=== PATIENT | male | born 2000 | race Caucasian/White ===

== ENCOUNTER 2019-03-19 06:05 | Day surgery (SDC) | payer BC ==
[2019-03-19] VITALS (13 sets, daily range): BP systolic 115–147; BP diastolic 57–79
[~2019-03-19] VITALS: Ht 177.8 cm; Wt 70.3 kg
[2019-03-19] MEDS ORDERED: NKM (06:32)
[2019-03-19] MEDS ORDERED: ceFAZolin sod 1 GM in NS 55 ML IVPB ONE (07:00)
[2019-03-19] MEDS ORDERED: Cocaine HCl 4% 4ml vial TOPIC ONE (07:05)
[2019-03-19] MEDS ORDERED: Kenalog-40 1ml Vial ONE (07:05)
[2019-03-19] MEDS ORDERED: Bacitracin Oint 15gm Tube TOPIC ONE (07:05)
[2019-03-19] MEDS ORDERED: Oxymetazoline 0.05% Na Spray 30ml NASAL ONE (07:06)
--- NOTE | 2019-03-19 07:08 | Anethesia Preoperative Eval ---
Anesthesia Pre-op PMH/ROS General Date of Evaluation: Mar 19, 2019 Anesthesiologist: Felipe ASA Score: ASA 1 Mallampati Score Class I : Soft palate, uvula, fauces, pillars visible Class II: Soft palate, uvula, fauces visible Class III: Soft palate, base of uvula visible Class IV: Only hard plate visible Mallampati Classification: Class II Surgeon: Lang Diagnosis: Deviated septum Surgical Procedure: septoplasty, smr turbs and possible nasal reconstruction Anesthesia History: none Family History: no anesthesia problems Allergies: Coded Allergies: No Known Allergies (Unverified , 03/14/19) Medications: see eMAR Patient NPO?: Yes NPO Date: Mar 18, 2019 NPO Time: 22:00 Past Medical History Cardiovascular: Denies: HTN, CAD, MA, valve dz, arrhythmia, other Pulmonary: Denies: asthma, COPD, GEO, other Gastrointestinal/Genitourinary: Denies: GERD, CRI, ESRD, other Neurologic/Psychiatric: Denies: dementia, CVA, depression/anxiety, TIA, other Endocrine: Denies: DM, hypothyroidism, steroids, other HEENT: Denies: cataract (L), cataract (R), glaucoma, CACHIL DEHE (L), CACHIL DEHE (R), other Hematology/Immune: Denies: anemia, DVT, bleeding disorder, other Musculoskeletal/Integumentary: Denies: OA, RA, DJD, DDD, edema, other PSxH Narrative: Denies Anesthesia Pre-op Phys. Exam Physician Exam Last Vital Signs Date Time Temp Pulse Resp B/P (MAP) Pulse Ox O2 Delivery O2 Flow Rate FiO2 03/19/19 06:47 Room Air 03/19/19 06:42 97.6 74 18 115/57 97 Constitutional: NAD Cardiovascular: RRR Respiratory: CTA Airway Exam Mallampati Score: Class II MO: full ROM: full Teeth: intact Anesthesia Pre-op A/P Labs see chart Risk Assessment & Plan Assessment: ASA II Plan: GA Status Change Before Surgery: No Pre-Antibiotics Drug: Ancef 1g Given Within 1 Hr of Incision: Yes Terri De Los Santos MD Mar 19, 2019 07:08
[2019-03-19] MEDS ORDERED: Zemuron 50mg/5ml Inj IV ONE ×2 (07:23→10:36)
[2019-03-19] MEDS ORDERED: fentaNYL 100 mcg/2 mL IV ONE ×2 (07:25→13:54)
[2019-03-19] MEDS ORDERED: Midazolam 2mg/2ml Inj ONE (07:25)
[2019-03-19] MEDS ORDERED: Propofol 200mg/20ml IV ONE ×2 (07:25→13:44)
[2019-03-19] MEDS ORDERED: Lidocaine 1% MPF 10mg/ml 5ml ONE (07:25)
--- NOTE | 2019-03-19 07:25 | Pre-Procedure Note/Attestation ---
Pre-Procedure Note/Attestation Complete Prior to Procedure Planned Procedure: not applicable Procedure Narrative: nasal obstruction unresponsive to medication Indications for Procedure Pre-Operative Diagnosis: septal deviation, bilateral hypertrophied inferior turbinates Attestation I attest that I discussed the nature of the procedure; its benefits; risks and complications; and alternatives (and the risks and benefits of such alternatives ), prior to the procedure, with the patient (or the patient's legal sales representative publications). I attest that, if there was a reasonable possibility of needing a blood transfusion, the patient (or the patient's legal sales representative publications) was given the [facility] standardized written summary, pursuant to the [place] Blood Safety Act ([place] Health and Safety Code # 1645, as amended). I attest that I re-evaluated the patient just prior to the surgery and that there has been no change in the patient's H&P, except as documented below: Elier Croft MD Mar 19, 2019 07:24
[2019-03-19] MEDS ORDERED: Lidocaine 1% Plain 30 ml INJ ONE (07:27)
[2019-03-19] MEDS ORDERED: Ketorolac 30mg Inj ONE (07:29)
[2019-03-19] MEDS ORDERED: Metoclopramide 10mg/2ml Inj ONE (07:29)
[2019-03-19] MEDS ORDERED: Dexamethasone 4mg/ml vial ONE (07:29)
[2019-03-19] MEDS: Lidocaine 1% 10mg/ml/EPI 0.01mg/ml 50ml INJ ONE ×2 (07:45→10:00)
[2019-03-19] MEDS ORDERED: NS Irrig 1000ml ONE (08:00)
[2019-03-19] MEDS ORDERED: Sterile Water Irrig 1000ml IRRIG ONE (08:00)
[2019-03-19] MEDS ORDERED: LR 1000ml ONE (08:00)
[2019-03-19] MEDS ORDERED: Propofol 1,000mg/ 100ml btl IV ONE (08:00)
[2019-03-19] MEDS ORDERED: LR 1000ml 1,000 ML IVLG SCH (09:51)
[2019-03-19] MEDS ORDERED: Metoclopramide 10mg/2ml Inj IVP PRN ×2 (10:00→16:15)
[2019-03-19] MEDS ORDERED: Midazolam 2mg/2ml Inj IVP PRN ×2 (10:00→16:15)
[2019-03-19] MEDS ORDERED: DiphenhydrAMINE 50mg/ml Inj IVP PRN ×2 (10:00→16:15)
[2019-03-19] MEDS ORDERED: LORazepam Inj 2mg/ml 1ml IV PRN ×2 (10:00→16:15)
[2019-03-19] MEDS ORDERED: fentaNYL 100 mcg/2 mL IV PRN ×2 (10:00→16:15)
[2019-03-19] MEDS ORDERED: Hydromorphone 0.5mg/0.5ml inj IVP PRN ×2 (10:00→16:15)
[2019-03-19] MEDS ORDERED: Sugammadex Sodium 200mg/2ml vial IV ONE (10:35)
[2019-03-19] MEDS ORDERED: Lidocaine 1% 10mg/ml/EPI 0.01mg/ml 50ml INJ ONE (11:12)
--- NOTE | 2019-03-19 15:28 | Immediate Post-Op Evaluation ---
Immediate Post-Op Evalulation Immediate Post-Op Evalulation Procedure: septoplasty, smr turbs, Date of Evaluation: Mar 19, 2019 Time of Evaluation: 15:27 IV Fluids: 2.2L Blood Products: 0 Estimated Blood Loss: 25 Urinary Output: 0 Blood Pressure Systolic: 126 Blood Pressure Diastolic: 63 Pulse Rate: 104 Respiratory Rate: 16 O2 Sat by Pulse Oximetry: 100 Temperature (Fahrenheit): 99.1 Pain Score (1-10): 0 Nausea: No Vomiting: No Complications 0 Patient Status: awake, reacts, patent, none Hydration Status: adequate Drug: Ancef 1g Given Within 1 Hr of Incision: Yes Terri De Los Santos MD Mar 19, 2019 15:28
--- NOTE | 2019-03-19 15:29 | 48 Hour Post Anesthesia Eval ---
Post Anesthesia Evaluation Procedure: septoplasty, smr turbs, Date of Evaluation: Mar 19, 2019 Airway: patent Nausea: No Vomiting: No Hydration Status: adequate Cardiopulmonary Status: at baseline Mental Status/LOC: patient returned to baseline Post-Anesthesia Complications: 0 Follow-up care needed: ready to discharge Terri De Los Santos MD Mar 19, 2019 15:29
--- NOTE | 2019-03-19 15:41 | Brief Operative Note ---
Immediate Post Operative Note Operative Note Pre-op Diagnosis: septal deviation, bilateral hypertrophied inferior turbinates Procedure: seprtoplasty, bilateral inferior turbinectomies with intramural coagulation, reconstruction of collapsed left internal valve with septal cartilage, and right external valve with advancement flap Post-op Diagnosis: same as pre-op plus - colapsed left internal valve and rigth external valve Elier Croft MD Mar 19, 2019 15:41
--- NOTE | 2019-03-19 15:44 | Brief Operative Note ---
Immediate Post Operative Note Operative Note Pre-op Diagnosis: septal deviation, bilateral hypertrophied inferior turbinates Procedure: seprtoplasty, bilateral inferior turbinectomies with intramural coagulation, reconstruction of collapsed left internal valve with septal cartilage, and right external valve with advancement flap Post-op Diagnosis: same as pre-op plus - collapsed left internal valve and collapse left external valve Surgeon: Elier Croft M.D. Anesthesiologist: Felipe Anesthesia: general Specimen: yes - septum Complications: none Condition: stable Fluids: ringers lactate Estimated Blood Loss: minimal Drains: none Packing: telfa Implant(s) used?: Yes - Gortex and septal cartilage Elier Croft MD Mar 19, 2019 15:44
--- NOTE | 2019-03-21 02:15 | Operative Note - Dictated ---
DATE OF OPERATION: 03/19/2019 SURGEON: Elier Croft M.D. ANESTHESIOLOGIST: Dr. Wang. ANESTHESIA: General. PREOPERATIVE DIAGNOSES: 1. Septal deviation. 2. Bilateral hypertrophied inferior turbinates. POSTOPERATIVE DIAGNOSES: 1. Septal deviation. 2. Bilateral hypertrophied inferior turbinates. 3. Collapsed left internal valve. 4. Collapsed right external nasal valve. INDICATIONS FOR SURGERY: The patient is a 18-year-old male who complains of bilateral nasal obstruction unresponsive to medication. His examination reveals severely twisted nose with bilateral hypertrophied inferior turbinates and a right septal deviation. Because of his nasal obstruction and unresponsive to medication, he is now being brought to the operating room. FINDINGS AT SURGERY: Revealed the nose to be twisted to the left in the mid portion of the upper lateral cartilage and severely to the right. The columella was also pushed to the right because of the septum, which was not located in midline, but actually lateral to the right nasal tip. It pushed the columella to the right and also the lower portion of the columella upper lip junction narrowing the right nasal nostril. Intranasal examination revealed a right septal deviation pushing up against the right inferior turbinate and middle turbinate. The examination of left intranasal cavity revealed a collapse of the left upper lateral cartilage. There was also the nasal tip was noted to be collapsed on the left side. It was extended up to the upper lateral cartilage creating a significant obstruction. PROCEDURE IN DETAIL: The patient was brought to the operating room while premedicated. Surgeon marker pen had been used to outline the deformity of the right mid vault area and the left nasal tip extending up to the lower lateral portion of the left upper lateral cartilage. The patient was placed supine position on the operating room table. After the patient underwent satisfactory endotracheal intubation, he was given intravenous anesthesia. Examination of the nose was as previously described with the nose being severely twisted to the left in the midportion and then to the right inferiorly narrowing the right nasal inflow tract. Upon examination in the operating room, it was felt that the patient going to need grafting to the various sites of obstruction which included ear cartilage. Both ears were then prepped with Betadine solution and approximately 10 mL of 1% Xylocaine with 1:100,000 epinephrine mixed with 0.25% Marcaine with 1:200,000 epinephrine mixed 50:50 were used to inject the postauricular area. The patient then prepped and draped in the usual sterile fashion. My attention to the right ear first. The right ear was retracted anteriorly and a 15 blade was used to make incision along the posterior aspect of the ear extending down to the perichondrium. All bleeding was secured with cautery. The flap was developed to the anterior helical rim and then down to the base of the ear. The conchal cartilage was then incised in elliptical fashion with a #15 blade. Incision was then used to separate the cartilage from the underlying mucoperichondrium anteriorly removed from the field of operation rinsed with the Betadine were used in the graft later. All bleeding was secured with cautery. A 4-0 Mersilene right braided suture was used to collapse the edges of the missing conchal cartilage together so the ears had a firm base. The right ear then rinsed with Betadine solution and the incision was closed with vertical mattress sutures of 4-0 plain at the area previously crosshatched and running suture of 4-0 plain after a Justino drain, which was placed in Betadine was placed in the depths of the wound and brought out inferiorly and secured to the edge with the 5-0 Prolene. The wound was then packed with cotton saturated in Betadine both anteriorly and posteriorly. The similar procedure was performed on the opposite ear. Dressing placed in the ear to keep it sterilely and my attention was turned to the nasal cavity. Approximately 26 mL of 1% Xylocaine with 1:100,000 epinephrine were used to inject the external and internal nasal and septal regions. Less than 200 mg of cocaine. Prior to the injection of the nose, the intranasal area was prepped with Betadine solution to remain as much sterile as possible. After a suitable period of vasoconstriction, a #15 blade was used to make incision between the upper lower lateral cartilage, extensive undermining was performed. The left inferior septal incision anteriorly was then performed and taken down to the underlying septum. Left junction tunnels were then accomplished and the upper lateral cartilage was incised. This was hoping to allow the septum to move more to the left side alleviating some of the tremendous left internal valve obstruction. The area that had been elevated again rinsed with Betadine solution. My attention was turned to the intranasal cavity. A right inferior septal incision was then made and carried down to the mucoperichondrium. The mucoperichondrium was then elevated running into thickened tissue with areas of scarring. This dissection then proceeded back to mucoperiosteum running into a huge area of thickened bone which was impacted against the right inferior and middle turbinate. The impacted bone was able to be removed with Ercih after incision was made between the cartilage and bony septum and a left mucoperiosteal flap was elevated. This was performed until there was a good passively superiorly. A similar procedure was performed on the septal cartilage maintaining good anterior and inferior support. The cartilage removed from the patient was then placed in the Betadine solution to use graft if needed. The release of the overlying mucoperichondrium of the deviated septum appeared to deviating even more into the right nasal cavity inferiorly walking essentially 30% of the medial aspect of the nasal inflow tract. The lower portion of the septum was then extensively crosshatched, was able to be mobilized into the center alleviating much of the obstruction of the right external nasal valve. Bipolar intramural coagulation of both inferior turbinates was then performed. An incision was made in the undersurface of both inferior turbinates and mucosa stripped the underlying bone. The inferior turbinates then outfractured and small piece of bone removed from the pocket. Re-examination still revealed that the right mid vault area was narrowed and the left internal valve was also still collapsed as was the left nasal tip. A piece of 2 mm Toledo-Albert was brought in the field of operation and cut to fit the area of collapsed right mid vault area. This was then placed in Betadine solution. The cartilage removed was found to be insufficient to fully correct the left nasal tip and in the upper lateral cartilage collapse. So the cartilage which had been harvested was then cut to fit the area of collapse and placed back into the Betadine along with the Toledo-Albert. Again, the nasal cavity which was previously elevated with scissors, was rinsed with Betadine solution. A suture of 5-0 plain was placed inferiorly and superiorly to the Toledo-Albert placed underneath the skin and brought out superiorly and inferiorly at the area previously demarcated. The Toledo-Albert was then slid underneath the skin and the sutures were tightened. Examination of the area revealed the graft to be in good position. This was checked multiple times and once felt to be in good position was secured to the outer skin with Steri-Strips. A similar procedure was performed on the left side with the septal cartilage. This was also checked with the great position and found to be quite slightly out of line, was repositioned and then multiple checks were found to be in good position. The area was then rinsed with Betadine solution and Steri-Strips were placed also over the sutures of the left lateral cartilage and nasal tip implant of septal cartilage. Examination now revealed the patient to have a good bilateral nasal airway. All blood was suctioned from the nose and nasopharynx area. A 4-0 plain was used to close the septal incision as well as to splint the septum. A 4-0 plain was also used to close the between the cartilage incision. Re-examination revealed that the anterior nasal spine still deviates to the right within the septal cartilage to the right and this was fracture in the midline with mallet and chisel technique. The 4-0 plain was released and re-examination revealed a portion of the maxillary crest was still deviated to the right nasal cavity was removed with mallet and chisel technique. Re-examination reveals some slight bleeding beneath the right mucoperichondrial and mucoperiosteal flaps, which was noted prior to the release of the septal sutures. This was suctioned from the nasal cavity. A 12 blade was used to make a small rent in the mucoperiosteal and mucoperichondrium flap allowing for the postoperative drainage of hematoma. Re-examination of the area of blood buildup the nasal flaps was now found to be resolved. A 4-0 plain was again used to splint the septum. Telfa coated with a mixture of bacitracin and Betadine were then secured intranasally with a suture of 3-0 silk. A sterile dressing consisting of Mastisol, paper adhesive tape and cast was then secured in place. The pressure dressing was placed in the mastoid fashion over the ears consisting of flaps, Denilson and Coban and the procedure was terminated. The patient tolerated the procedure well and left the operating room in satisfactory condition. ESTIMATED BLOOD LOSS: 30 mL. COUNTS: Sponge and needle counts were correct. Elier Croft M.D. DR: NATHAN :06 JOB#: [id number] CC:
== END 2019-03-19 17:30 | disposition home or self-care (01) ==
LOC: SUR 06:05
DX: J34.2 Deviated nasal septum (principal); J34.3 Hypertrophy of nasal turbinates; M95.0 Acquired deformity of nose
CPT/HCPCS: 15260; 30520; 30630; 30802; J0690; J1100; J1170; J2001; J2250; J2405; J2704; J2765; J3010; 94003; 94150